=== PATIENT | male | born 1940 | race Caucasian/White ===

== ENCOUNTER 2016-10-03 19:27 | Emergency (ER) | payer MEDICARE, BC ==
[~2016-10-03] VITALS: Ht 175.3 cm; Wt 70.3 kg
[2016-10-03 19:40] VITALS: BP 125/69
== END 2016-10-03 20:29 | disposition home or self-care (01) ==
LOC: ER 19:32
DX: S61.211A Laceration without foreign body of left index finger without damage to nail, initial encounter (principal); E78.00 Pure hypercholesterolemia, unspecified; W26.0XXA Contact with knife, initial encounter; Y93.G1 Activity, food preparation and clean up; Y92.89 Other specified places as the place of occurrence of the external cause; Y99.8 Other external cause status
CPT/HCPCS: 12001; 99283; A4606; Z7610

== ENCOUNTER 2016-10-13 14:55 | Emergency (ER) | payer MEDICARE, BC ==
[~2016-10-13] VITALS: Ht 180.3 cm; Wt 70.3 kg
[2016-10-13 15:04] VITALS: BP 135/72
--- NOTE | 2016-10-13 15:23 | NUR ---
AT BEDSIDE FOR WOUND CARE AND EVAL
== END 2016-10-13 15:33 | disposition home or self-care (01) ==
LOC: ER 15:01
DX: S61.211D Laceration without foreign body of left index finger without damage to nail, subsequent encounter (principal); E78.00 Pure hypercholesterolemia, unspecified
CPT/HCPCS: A4606; Z7610

== ENCOUNTER 2016-10-19 13:35 | Emergency (ER) | payer MEDICARE, BC ==
[~2016-10-19] VITALS: Ht 180.3 cm; Wt 68.0 kg
[2016-10-19 13:52] VITALS: BP 118/60
== END 2016-10-19 14:24 | disposition home or self-care (01) ==
LOC: ER 13:36
DX: S61.211D Laceration without foreign body of left index finger without damage to nail, subsequent encounter (principal); X58.XXXD Exposure to other specified factors, subsequent encounter; M19.90 Unspecified osteoarthritis, unspecified site; E78.00 Pure hypercholesterolemia, unspecified; M79.7 Fibromyalgia
CPT/HCPCS: A4606; Z7502; Z7610

== ENCOUNTER 2019-04-05 15:08 | Emergency (ER) | payer MEDICARE, BC ==
[~2019-04-05] VITALS: Ht 167.6 cm; Wt 66.2 kg
[2019-04-05 15:22] VITALS: BP 125/94
== END 2019-04-05 16:12 | disposition home or self-care (01) ==
LOC: ER 15:09
DX: S81.012A Laceration without foreign body, left knee, initial encounter (principal); M19.90 Unspecified osteoarthritis, unspecified site; M79.7 Fibromyalgia; E78.00 Pure hypercholesterolemia, unspecified; W01.0XXA Fall on same level from slipping, tripping and stumbling without subsequent striking against object, initial encounter; Y93.89 Activity, other specified; Y92.59 Other trade areas as the place of occurrence of the external cause; Y99.8 Other external cause status
CPT/HCPCS: 99282; A6403

== ENCOUNTER 2019-09-09 08:51 | Emergency (ER) | payer MEDICARE, BC ==
[~2019-09-09] VITALS: Ht 172.7 cm; Wt 70.8 kg
--- NOTE | 2019-09-09 09:00 | NUR ---
laceration to scalp s/p hitting head on gym equipment this morning. Patient a/ox4, hard of hearing. Patient has 2x1cm laceration on back of head.
[2019-09-09] MEDS ORDERED: TDAP [DIPH/PERTUSSIS/TET] 0.5 ML VIAL IM ONE ×2 (09:17→09:30)
[2019-09-09] MEDS ORDERED: LIDOCAINE /MPF 1% VIAL 5 ML VIAL ONE (10:13)
[2019-09-09] MEDS ORDERED: LIDOCAINE 1%-EPI 1:100,000 50 ML VIAL IJ ONE (10:30)
[2019-09-09 10:37] VITALS: BP 135/71
--- NOTE | 2019-09-09 10:38 | NUR ---
Patient discharged to home in stable condition. Written and verbal after care instructions given. Patient verbalizes understanding of instruction.
== END 2019-09-09 10:37 | disposition home or self-care (01) ==
LOC: ER 09:01
DX: S01.01XA Laceration without foreign body of scalp, initial encounter (principal); M79.7 Fibromyalgia; M19.90 Unspecified osteoarthritis, unspecified site; E78.00 Pure hypercholesterolemia, unspecified; W22.8XXA Striking against or struck by other objects, initial encounter; Y93.89 Activity, other specified; Y92.39 Other specified sports and athletic area as the place of occurrence of the external cause; Y99.8 Other external cause status
CPT/HCPCS: 12001; 70450; 90471; 90715; 99284; A6403; J3490 ×2

== ENCOUNTER 2019-09-16 09:30 | Emergency (ER) | payer MEDICARE, BC ==
[~2019-09-16] VITALS: Ht 172.7 cm; Wt 79.8 kg
[2019-09-16 09:34] VITALS: BP 109/73
--- NOTE | 2019-09-16 09:49 | NUR ---
Patient discharged to home in stable condition. Written and verbal after care instructions given. Patient verbalizes understanding of instruction.
== END 2019-09-16 09:49 | disposition home or self-care (01) ==
LOC: ER 09:41
DX: S01.01XD Laceration without foreign body of scalp, subsequent encounter (principal); M79.7 Fibromyalgia; M19.90 Unspecified osteoarthritis, unspecified site; E78.00 Pure hypercholesterolemia, unspecified; Z85.828 Personal history of other malignant neoplasm of skin; X58.XXXD Exposure to other specified factors, subsequent encounter

== ENCOUNTER 2022-02-09 12:37 | Emergency (ER) | payer MEDICARE, BC ==
[~2022-02-09] VITALS: Ht 172.7 cm; Wt 68.0 kg
--- NOTE | 2022-02-09 13:00 | NUR ---
[id number] C/O LLE PAIN W/ NOTED SKIN TEAR FROM GLF LAST MONDAY. RATES PAIN 12/24. WILL CONTINUE TO MONITOR THE PATIENT.
[2022-02-09] MEDS ORDERED: CEPH500C2 PO (14:32)
--- NOTE | 2022-02-09 15:02 | NUR ---
[facility] CALLED FOR TRANSPORT ETA 30 MINS PER TERRELL.
--- NOTE | 2022-02-09 15:20 | NUR ---
[facility] AT BEDSIDE AND PROVIDED ENDORSEMENT.
[2022-02-09 15:24] VITALS: BP 130/90
[2022-02-26] MEDS ORDERED: MAGN400O6 PO (10:41)
== END 2022-02-09 15:52 | disposition home or self-care (01) ==
LOC: ER 12:40
DX: S81.802A Unspecified open wound, left lower leg, initial encounter (principal); M79.7 Fibromyalgia; M19.90 Unspecified osteoarthritis, unspecified site; E78.00 Pure hypercholesterolemia, unspecified; W18.39XA Other fall on same level, initial encounter; Y93.89 Activity, other specified; Y92.89 Other specified places as the place of occurrence of the external cause; Y99.8 Other external cause status

== ENCOUNTER 2022-02-22 13:13 | Inpatient (IN) | payer MEDICARE, BC ==
[~2022-02-22] VITALS: Ht 175.3 cm; Wt 68.0 kg
[~2022-02-22 13:13] MED LIST: CEPH500C2 PO
--- NOTE | 2022-02-22 13:13 | NUR ---
BIB RA [facility] FROM HOME S/P HAVING A GLF, NEIGHBOR CALLED [facility] PT -LOC. BLOOD GLUCOSE 130 PER EMS. PT C/O GENERAL WEAKNESS. VITALS ARE WITHIN NORMAL LIMITS. AWAITING MD ORDERS.
[2022-02-22 14:00] LABS: BASOPHILS % (AUTO) 0.2 % (0.0-2.0); HEMATOCRIT 37 % (39-51); HEMOGLOBIN 12.4 g/dL (13.5-17.5); LYMPHOCYTES # (AUTO) 0.5 K/uL (0.8-4.8); LYMPHOCYTES % (AUTO) 7.4 % (20.0-44.0); MEAN CORPUSCULAR HGB CONC 34 g/dl (31.0-36.0); MEAN CORPUSCULAR VOLUME 116 fL (80-96); MONOCYTES # (AUTO) 0.7 K/uL (0.1-1.30); MONOCYTES % (AUTO) 10.8 % (2.0-12.0); NEUTROPHILS # (AUTO) 5.6 K/uL (1.8-8.9); NEUTROPHILS % (AUTO) 81.6 % (43.0-81.0); PLATELET COUNT (AUTO) 93 K/uL (150-450); RED BLOOD CELL COUNT(AUTO) 3.16 MIL/uL (4.5-6.0); WHITE BLOOD COUNT (AUTO) 6.8 K/uL (4.3-11.0)
--- NOTE | 2022-02-22 14:03 | NUR ---
COVID TEST COLLECTED AND SENT
[2022-02-22 14:14] LABS: CARBON DIOXIDE 27 mmol/L (21-32); CHLORIDE 102 mmol/L (98-107); POTASSIUM 4.1 mmol/L (3.5-5.1); SODIUM SERUM 139 mmol/L (136-145)
[2022-02-22] MEDS ORDERED: LORA-259 PO (14:20)
[2022-02-22] MEDS ORDERED: BICT1TAB PO (14:31)
[2022-02-22] MEDS ORDERED: DOXA8TAB79 PO (14:31)
[2022-02-22] MEDS ORDERED: LEVO50TA8 PO (14:31)
[2022-02-22] MEDS ORDERED: LIOT5TAB11 PO (14:31)
--- NOTE | 2022-02-22 14:41 | NUR ---
[facility] (HOME HEALTH FOR THIS PT) [phone]
[2022-02-22 14:51] LABS: ACETAMINOPHEN 0 ug/ml (10-30); ALANINE AMINOTRANSFERASE 26 U/L (12-78); ALBUMIN 3.8 g/dL (3.4-5.0); ALCOHOL, BLOOD < 3 mg/dL (0-0); ALKALINE PHOSPHATASE 84 U/L (46-116); ASPARTATE AMINOTRANSFERASE 85 U/L (15-37); BILIRUBIN,DIRECT 0.4 mg/dL (0.0-0.2); BILIRUBIN,TOTAL 3.3 mg/dL (0.2-1.0); CALCIUM, SERUM 9.3 mg/dL (8.5-10.1); CREATININE 0.9 mg/dL (0.6-1.3); GLUCOSE 129 mg/dL (74-106); UREA NITROGEN, BLOOD 32 mg/dL (7-18)
--- NOTE | 2022-02-22 15:40 | NUR ---
CALLED NURSING SUP REGARDING PT BED
[2022-02-22 15:48] LABS: LYMPHOCYTES % (MANUAL) 11 % (16-48); MONOCYTES % (MANUAL) 9 % (0-11.0); NEUTROPHILS % (MANUAL) 80 (42-76)
[2022-02-22] MEDS ORDERED: LORAZEPAM 1 MG TABLET PO PRN (16:00)
[2022-02-22] MEDS ORDERED: ACETAMINOPHEN 325 MG TABLET PO PRN (16:00)
[2022-02-22] MEDS ORDERED: ONDANSETRON HCL/PF 4 MG/2 ML VIAL IVP PRN (16:00)
[2022-02-22] MEDS ORDERED: ZOLPIDEM TARTRATE 5 MG TABLET PO PRN (16:00)
[2022-02-22] MEDS ORDERED: MAGNESIUM HYDROXIDE 30 ML UDC PO PRN (16:00)
[2022-02-22] MEDS ORDERED: Z GUARD REMEDY 4 OZ OINT TP PRN (16:00)
[2022-02-22] MEDS ORDERED: MAG HYDROX/AL HYDROX/SIMETH 30 ML UDC PO PRN (16:00)
--- NOTE | 2022-02-22 16:19 | NUR ---
[id number]. PRIMARY RN AWARE.
--- NOTE | 2022-02-22 16:55 | NUR ---
RN MS NOTES RECEIVED PT FROM E.R. STAFF VIA [facility], ASSISTED TO BED, MADE COMFORTABLE, PT IS AWAKE, ALERT AND VERBALLY RESPONSIVE, PT IS DEAF, NURSES COMMUNICATE THROUGH GESTURES AND HANDWRITTEN NOTED, PT DENIES PAIN, NOT IN DISTRESS, ROOM SET UP ORIENTATION PROVIDED TO PT, VERBALIZED UNDERSTANDING, VITALS TAKEN AND RECORDED, SKIN ASSESSMENT DONE AND PHOTOS TAKEN, DINNER SERVED, ATE WITH GOOD APPETITE, PM MEDS GIVEN ORDERED, ALL NEEDS ATTENDED.
[2022-02-22 17:00] VITALS: BP 138/76
[2022-02-22] MEDS: IV NS 0.9% 1,000 ML IV PRN (18:11)
--- NOTE | 2022-02-22 19:41 | NUR ---
RN MS NOTES PT IS AWAKE, ALERT AND VERBALLY RESPONSIVE, PT IS DEAF, NURSES COMMUNICATE THROUGH GESTURES AND HANDWRITTEN NOTED, PT DENIES PAIN, NOT IN DISTRESS, ROOM SET UP ORIENTATION PROVIDED TO PT, VERBALIZED UNDERSTANDING. PT IN NO PAIN OR DISTRESS AT THIS TIME WILL CONTINUE TO MONITOR.
[2022-02-22 20:00] VITALS: BP 120/51
[2022-02-23 06:24] LABS: BASOPHILS % (AUTO) 0.4 % (0.0-2.0); EOSINOPHILS % (AUTO) 0.7 % (0.0-6.0); HEMATOCRIT 34 % (39-51); HEMOGLOBIN 11.7 g/dL (13.5-17.5); LYMPHOCYTES # (AUTO) 0.7 K/uL (0.8-4.8); LYMPHOCYTES % (AUTO) 17.3 % (20.0-44.0); MEAN CORPUSCULAR HGB CONC 34 g/dl (31.0-36.0); MEAN CORPUSCULAR VOLUME 117 fL (80-96); MONOCYTES # (AUTO) 0.5 K/uL (0.1-1.30); MONOCYTES % (AUTO) 10.8 % (2.0-12.0); NEUTROPHILS % (AUTO) 70.8 % (43.0-81.0); PLATELET COUNT (AUTO) 78 K/uL (150-450); RED BLOOD CELL COUNT(AUTO) 2.92 MIL/uL (4.5-6.0); WHITE BLOOD COUNT (AUTO) 4.3 K/uL (4.3-11.0)
--- NOTE | 2022-02-23 06:46 | NUR ---
RN MS NOTES PT IS AWAKE, A/O X 4 ABLE TO MAKE NEED KNOW ON ROOM AIR TOLERATING WELL. PT IS DEAF, COMMUNICATES THROUGH GESTURES AND HANDWRITTEN NOTED, PT DENIES PAIN, NOT IN DISTRESS, PT HAS IV ACCESS ON THE LFA RUNNING NS@90ML/HR TOLERATING WELL. ALL NEEDS MET. CALL LIGHT WITHIN REACH. TABLE WITHIN REACH. BILATERAL SIDE RAILS UP FOR SAFETY. PT URINE NEED TO BE COLLECTED FOR CX WILL HAVE DAYSHIFT NURSE TRY TO COLLECT I WAS NOT ABLE TO COLLECT LAST NIGHT. WILL ENDORSE AUSTEN.
[2022-02-23 07:06] LABS: ALBUMIN 2.9 g/dL (3.4-5.0); BILIRUBIN,TOTAL 3.2 mg/dL (0.2-1.0); CALCIUM, SERUM 8.4 mg/dL (8.5-10.1); CREATININE 0.8 mg/dL (0.6-1.3); MAGNESIUM 2.2 mg/dL (1.8-2.4); POTASSIUM 3.6 mmol/L (3.5-5.1); TOTAL PROTEIN, SERUM 5.7 g/dL (6.4-8.2)
--- NOTE | 2022-02-23 07:08 | NUR ---
MS RN OPENING NOTES RECEIVED PATIENT ASLEEP IN BED, A/Ox4, ON ROOM AIR NO S/S OF RESPIRATORY DISTRESS. IV ACCESS L HAND #20G RUNNING NS @90 ML/HR. INTACT AND PATENT, NO S/S OF INFILTRATION. BED REST. CONTINENT USES URINAL. NO S/S OF PAIN OR DISCOMFORT. PATIENT HAS L KNEE, TOES, CALFS, SACRAL, AND L/R LEG ABRASIONS. SAFETY MEASURES IN PLACE: BED LOCKED AND IN LOWEST POSITION, CALL LIGHT WITHIN REACH, SIDE RAILS UPx2. WILL CONTINUE TO MONITOR.
[2022-02-23 08:00] VITALS: BP 134/78
[2022-02-23] MEDS: LEVOTHYROXINE SODIUM 50 MCG TABLET PO SCH (08:30)
[2022-02-23] MEDS: LIOTHYRONINE SODIUM (5 MCG/TA 5 MCG TABLET PO SCH (08:30)
[2022-02-23] MEDS: DOXAZOSIN MESYLATE (4 MG) 4 MG TABLET PO SCH (08:31)
--- NOTE | 2022-02-23 10:17 | NUR ---
WOUND CARE CONSULT: PT PRESENTS WITH SACRAL DEEP TISSUE INJURY IN EVOLUTION AND LEFT KNEE DRY ESCHAR, PRESENT ON ADMISSION. PT ALSO NOTED TO HAVE MULTIPLE AREAS OF SKIN DISCOLORATION. SURGICAL CONSULT CALLED TO DR TONY RUIZ. RECOMMENDATIONS MADE FOR SKIN PROTECTION AND WOUND CARE. DISCUSSED WITH NURSING STAFF. IN AGREEMENT WITH PLAN OF CARE. Addendum: 02/23/22 at 1019 by RAGHAV KRUEGER WNDNU Amended: Links added.
[2022-02-23 11:09] LABS: BILIRUBIN,URINE SMALL (NEGATIVE); COLOR,URINE AMBER (YELLOW); LEUKOCYTE ESTERASE ,URINE NEGATIVE (NEGATIVE); NITRITE, URINE NEGATIVE (NEGATIVE); PROTEIN,URINE TRACE mg/dl (NEGATIVE); UGLUCOSE NEGATIVE (NEGATIVE)
[2022-02-23 11:27] LABS: BACTERIA,URINE None seen /HPF (None Seen); SQUAMOUS EPITHELIAL CELL,UR 0-2 /HPF (None Seen); WBC,URINE 0-2 /HPF (0-3)
[2022-02-23 16:05] VITALS: BP 135/68
--- NOTE | 2022-02-23 18:37 | NUR ---
MS RN CLOSING NOTES PATIENT RESTING IN BED, A/Ox4, STABLE ON ROOM AIR NO S/S OF RESPIRATORY DISTRESS. IV ACCESS L HAND #20G RUNNING NS @90 ML/HR. INTACT AND PATENT, NO S/S OF INFILTRATION. BED REST. CONTINENT USES URINAL. NO S/S OF PAIN OR DISCOMFORT. PATIENT HAS L KNEE, L TOE, CALFS BRUISES, SACRAL WOUND, AND L/R LEG ABRASIONS. SAFETY MEASURES MAINTAINED: BED LOCKED AND IN LOWEST POSITION, CALL LIGHT WITHIN REACH, SIDE RAILS UPx2. WILL ENDORSE TO NEXT SHIFT ANY AUSTEN.
[2022-02-23] MEDS: IV NS 0.9% 1,000 ML IV PRN (19:12)
[2022-02-23 20:00] VITALS: BP 135/77
--- NOTE | 2022-02-23 20:25 | NUR ---
RECEIVED PATIENT IN BED, ALERT AND ORIENTED X4, DEAF, WRITTEN COMMUNICATIONS, ANSWERS VERBALLY, CALM, STABLE ON ROOM AIR, NO COMPLAIN OF PAIN, LEFT HAND IV, NS AT 90 ML/HR, KEPT SAFE, CALL LIGHT WITHIN REACH.
[2022-02-23 20:55] VITALS: BP 135/77
[2022-02-24] MEDS: IV NS 0.9% 1,000 ML IV PRN ×2 (06:18→17:15)
--- NOTE | 2022-02-24 06:47 | NUR ---
REMAINED ALERT AND ORIENTED X3, ROOM AIR, NO DISTRESS, BILATERAL EAR DEAFNESS, USES URINAL TO VOID, NS AT 90 ML/HR, UA NEGATIVE, PELVIC CT NEGATIVE, PT EVAL, TREND CK, WOUND CARE, CONTINUE IVF, MONITOR LABS.
[2022-02-24 07:01] LABS: CREATININE 0.8 mg/dL (0.6-1.3); POTASSIUM 3.4 mmol/L (3.5-5.1)
[2022-02-24 08:00] VITALS: BP 151/91
--- NOTE | 2022-02-24 08:03 | NUR ---
MS RN OPENING NOTE Patient in bed, awake. A/O x 4, deaf but able to communicate through writing. On room air, breathing evenly and unlabored. No SOB or s/s of distress noted. IV access on Left hand #20 infusing NS at 90 ml/hr. Safety precautions in place: bed in low, locked position; siderails up x 2; call light within reach. will continue to monitor.
[2022-02-24] MEDS: LIOTHYRONINE SODIUM (5 MCG/TA 5 MCG TABLET PO SCH (08:47)
[2022-02-24] MEDS: DOXAZOSIN MESYLATE (4 MG) 4 MG TABLET PO SCH (08:47)
[2022-02-24] MEDS: LEVOTHYROXINE SODIUM 50 MCG TABLET PO SCH (08:47)
[2022-02-24] MEDS ORDERED: APIXABAN 2.5 MG TABLET PO SCH (09:00)
[2022-02-24] MEDS ORDERED: POTASSIUM CHLORIDE 20 MEQ TAB.PRT.SR PO SCH (13:00)
--- NOTE | 2022-02-24 13:00 | NUR ---
RN NOTE Spoke with Maximiliano Orr, Patient's nephew, about patient's home medication Biktarvy. Per Maximiliano, they cannot find the medication at home. Spoke with patient who gave instructions as to where the medication might be located, relayed to Maximiliano. Notified pharmacy that family still looking for medication.
--- NOTE | 2022-02-24 19:33 | NUR ---
MS RN CLOSING NOTE Patient in bed, resting. A/O x 4, deaf but able to communicate through writing. Stable on room air, breathing evenly and unlabored. No SOB or s/s of distress noted. IV access on Left hand #20 infusing NS at 90 ml/hr. Due meds given. All needs attended to. Safety precautions in place: bed in low, locked position; siderails up x 2; call light within reach. Will endorse to corrosion control fitter nurse for AUSTEN.
[2022-02-24 20:00] VITALS: BP 107/71
--- NOTE | 2022-02-25 06:26 | NUR ---
MS RN CLOSING NOTE; Patient in bed, resting. A/O x 4, deaf but able to communicate through writing. Stable on room air, breathing evenly and unlabored.no sign sob/distress noted. IV access on Left hand #20 infusing NS at 90 ml/hr. Due meds given as ordered.All needs attended. Safety precautions in place: bed in low, locked position; siderails up x 2; call light within reach. Will endorse to next shift.
[2022-02-25 06:32] LABS: CALCIUM, SERUM 8.3 mg/dL (8.5-10.1); CARBON DIOXIDE 26 mmol/L (21-32); CHLORIDE 104 mmol/L (98-107); CREATININE 0.7 mg/dL (0.6-1.3); GLUCOSE 104 mg/dL (74-106); POTASSIUM 3.7 mmol/L (3.5-5.1); SODIUM SERUM 136 mmol/L (136-145); UREA NITROGEN, BLOOD 13 mg/dL (7-18)
--- NOTE | 2022-02-25 07:59 | NUR ---
MS DENA OPENING NOTE Patient in bed, awake. A/O x 4, deaf but able to communicate through writing. On room air, breathing evenly and unlabored. No SOB or s/s of distress noted. IV access on Left hand #20 infusing NS at 90 ml/hr. Patient denies any pain or discomfort at this time. Safety precautions in place: bed in low, locked position; siderails up x 2; call light within reach. Will continue to monitor. Addendum: 02/25/22 at 1941 by JAEL VEGA RN CORRECTION: Patient is A/O x 2-3, forgetful at times.
[2022-02-25] MEDS: LIOTHYRONINE SODIUM (5 MCG/TA 5 MCG TABLET PO SCH (08:20)
[2022-02-25] MEDS: LEVOTHYROXINE SODIUM 50 MCG TABLET PO SCH (08:20)
[2022-02-25] MEDS: DOXAZOSIN MESYLATE (4 MG) 4 MG TABLET PO SCH (08:21)
[2022-02-25] MEDS: IV NS 0.9% 1,000 ML IV PRN (19:14)
--- NOTE | 2022-02-25 19:39 | NUR ---
MS RN CLOSING NOTE Patient in bed, awake. A/O x 4, deaf but able to communicate through writing. Stable on room air, breathing evenly and unlabored. No SOB or s/s of distress noted. IV access on Left hand #20 infusing NS at 90 ml/hr. All needs attended to. Due meds given. Safety precautions maintained: bed in low, locked position; siderails up x 2; call light within reach. Will endorse to manufacturing shift supervisor nurse for AUSTEN. Addendum: 02/25/22 at 1941 by JAEL VEGA RN CORRECTION: Patient is A/O x 2-3, forgetful at times
--- NOTE | 2022-02-25 19:57 | NUR ---
RECEIVED PATIENT IN BED, ALERT/ORIENTED X2-3, DEAF, WRITTEN COMMUNICATION ONLY, STABLE ON ROOM AIR, NO COMPLAIN OF PAIN, KEPT HOB ELEVATED, FALL PRECAUTION, PRESSURE ULCER PRECAUTION, KEPT SAFE, WILL CONTINUE TO MONITOR.
[2022-02-25 21:53] VITALS: BP 127/91
[2022-02-26 03:49] VITALS: BP 127/91
--- NOTE | 2022-02-26 06:12 | NUR ---
ALERT/ORIENTED X3, FORGETFUL, DEAF, WRITTEN COMMUNICATIONS, ABLE TO ANSWER VERBALLY, NO COMPLAIN OF PAIN, NS AT 90 ML/HR, USES URINAL, AMBULATES WITH PT, DISCHARGE PLANNING IN PROGRESS, CM LOOKING FOR SNF THAT CAN REFILL BIKTARVY.
[2022-02-26] MEDS: IV NS 0.9% 1,000 ML IV PRN ×2 (06:17→17:35)
--- NOTE | 2022-02-26 07:30 | NUR ---
MS RN OPENING NOTES RECEIVED PATIENT IN BED , ALERT/ORIENTED X2-3, WITH HARD OF HEARING , WRITTEN COMMUNICATION ONLY, STABLE ON ROOM AIR WITH NO SOB OR DISTRESS NOTED, LEFT HAND #20 WITH NS @90 ML/HR , NO C/O OF PAIN AND DISCOMFORT , KEPT HOB ELEVATED, BED IN LOWEST POSITION , WILL CONTINUE TO MONITOR.
[2022-02-26 08:00] VITALS: BP 124/71
[2022-02-26] MEDS: LEVOTHYROXINE SODIUM 50 MCG TABLET PO SCH (08:29)
[2022-02-26] MEDS: DOXAZOSIN MESYLATE (4 MG) 4 MG TABLET PO SCH (08:30)
[2022-02-26] MEDS: LIOTHYRONINE SODIUM (5 MCG/TA 5 MCG TABLET PO SCH (08:57)
[2022-02-26] MEDS ORDERED: MAGN400O6 PO (10:41)
[2022-02-26 16:00] VITALS: BP 132/69
--- NOTE | 2022-02-26 18:37 | NUR ---
MS RN CLOSING NOTES PATIENT IN BED , ALERT/ORIENTED X2-3, WITH HARD OF HEARING , WRITTEN COMMUNICATION PROVIDED , STABLE ON ROOM AIR WITH NO SOB OR DISTRESS NOTED, LEFT HAND #20 WITH NS @90 ML/HR , ALL DUE MEDS GIVEN ORDERED , EVALUATED BY PHYSICAL THERAPY AND ABLE TO AMBULATE WITH ASSIST , NO C/O OF PAIN AND DISCOMFORT , KEPT HOB ELEVATED, BED IN LOWEST POSITION , WITH ORDER FOR D/C TO A SNF BUT STILL WAITING FOR HIS MEDICATION BIKTARVY AND PER DELIA ISABEL THEY CANT REFILL SINCE ITS ON THE WEEKEND , CROP GRAIN OR LIVESTOCK FARMER AWARE , ALL NEEDS ATTENDED
--- NOTE | 2022-02-26 19:34 | NUR ---
MS RN OPENING NOTES: RECEIVED PATIENT SLEEP IN BED COMFORTABLY AROUSABLE TO VERBAL STIMULI, BED IN LOW POSITION CALL LIGHTS WITHIN REACH, NO COMPLAIN OF PAIN AN D DISCOMFORT AT THIS TIME ON ROOM AIR SATURATING WELL, WITH IV LINE AT LEFT HAND #20 WITH ONGOING NSS@90ML/HR INFUSING WELL, PATIENT IS A/OX3 ABLE TO MAKE NEEDS KNOWN, HARD OF HEARING PROMPT AND IN WRITING COMMUNICATIONS, PATIENT KEPT CLEAN AND DRY ALL NEEDS MET WILL CONTINUE TO MONITOR.
[2022-02-26 20:00] VITALS: BP 123/79
[2022-02-27] MEDS: IV NS 0.9% 1,000 ML IV PRN ×2 (04:42→16:14)
--- NOTE | 2022-02-27 06:50 | NUR ---
RN CLOSING NOTES: PATIENT SLEEP IN BED COMFORTABLY, BED IN LOW POSITION, CALL LIGHTS WITHIN REACH, NO COMPLAIN OF PAIN AND DISCOMFORT AT THIS TIME, ON O2 INHALATION AT 3LPM SATURATING WELL, PATIENT IS A/OX4 ABLE TO MAKE NEEDS KNOWN, WITH IV LINE AT LAC#18 WITH ONGOING NSS@90ML/HR INFUSING WELL, PATIENT KEPT CLEAN AND DRY ALL NEEDS MET ENDORSE TO INCOMING SHIFT.
--- NOTE | 2022-02-27 07:10 | NUR ---
MS RN OPENING NOTES RECEIVED PATIENT SLEEPING IN BED, A/Ox3-4, ABLE TO MAKE NEEDS KNOWN. IV ACCESS L HAND #20 NS RUNNING 90 ML/HR. INTACT AND PATENT. PATIENT ON ROOM AIR, NO S/S OF RESPIRATORY DISTRESS. PATIENT IS CONTINENT, USES URINAL AND BEDPAN. SKIN ISSUES: SACRAL DTI, MULTIPLE BRUISES AND R KNEE ABRASION. SAFETY MEASURES IN PLACE: BED LOCKED AND IN LOWEST POSITION, CALL LIGHT WITHIN REACH, BED ALARM ON, SIDE RAILS UP x2, HOB ELEVATED. WILL CONTINUE TO MONITOR.
[2022-02-27] MEDS: LIOTHYRONINE SODIUM (5 MCG/TA 5 MCG TABLET PO SCH (08:12)
[2022-02-27] MEDS: DOXAZOSIN MESYLATE (4 MG) 4 MG TABLET PO SCH (08:13)
[2022-02-27] MEDS: LEVOTHYROXINE SODIUM 50 MCG TABLET PO SCH (08:13)
[2022-02-27 08:29] VITALS: BP 134/76
[2022-02-27 16:30] VITALS: BP 127/90
--- NOTE | 2022-02-27 18:36 | NUR ---
MS RN CLOSING NOTES PATIENT SLEEPING IN BED, A/Ox3-4, ABLE TO MAKE NEEDS KNOWN. IV ACCESS L HAND #20 NS RUNNING 90 ML/HR. INTACT AND PATENT. PATIENT ON ROOM AIR, NO S/S OF RESPIRATORY DISTRESS. PATIENT IS CONTINENT, USES URINAL AND BEDPAN. SKIN ISSUES: SACRAL DTI, MULTIPLE BRUISES AND R KNEE ABRASION. ALL PRESCRIBED MEDICATION ADMINISTERED. SAFETY MEASURES MAINTAINED: BED LOCKED AND IN LOWEST POSITION, CALL LIGHT WITHIN REACH, BED ALARM ON, SIDE RAILS UP x2, HOB ELEVATED. WILL ENDORSE TO NEXT SHIFT ANY AUSTEN.
[2022-02-27 20:00] VITALS: BP 146/94
--- NOTE | 2022-02-28 06:57 | NUR ---
RN CLOSING NOTES PATIENT IN BED , ALERT/ORIENTED X2-3, WITH HARD OF HEARING , WRITTEN COMMUNICATION PROVIDED , STABLE ON ROOM AIR WITH NO SOB OR DISTRESS NOTED, LEFT HAND #20 WITH NS @90 ML/HR , ALL DUE MEDS GIVEN ORDERED , EVALUATED BY PHYSICAL THERAPY AND ABLE TO AMBULATE WITH ASSIST , NO C/O OF PAIN AND DISCOMFORT , KEPT HOB ELEVATED, BED IN LOWEST POSITION , WITH ORDER FOR D/C TO A SNF WHEN BIKTARVY MEDICATION IS AVAILABLE PER NEPHEW
--- NOTE | 2022-02-28 07:25 | NUR ---
RN OPENING NOTE- PATIENT AWAKE IN BED, A/Ox3-4, HARD OF HEARING, . IV ACCESS L HAND #20 NS RUNNING 90 ML/HR. . PATIENT ON ROOM AIR, NO S/S OF RESPIRATORY DISTRESS. PATIENT IS CONTINENT, USES URINAL AND BEDPAN. SKIN ISSUES: SACRAL DTI, MULTIPLE BRUISES AND R KNEE ABRASION. SAFETY MEASURES IN PLACE: BED LOCKED AND IN LOWEST POSITION, CALL LIGHT WITHIN REACH, BED ALARM ON, SIDE RAILS UP x2, HOB ELEVATED. WILL CONTINUE TO MONITOR / ASSIST
[2022-02-28] MEDS: LIOTHYRONINE SODIUM (5 MCG/TA 5 MCG TABLET PO SCH (07:57)
[2022-02-28] MEDS: LEVOTHYROXINE SODIUM 50 MCG TABLET PO SCH (07:57)
[2022-02-28 08:00] VITALS: BP 135/92
[2022-02-28] MEDS: DOXAZOSIN MESYLATE (4 MG) 4 MG TABLET PO SCH (09:05)
[2022-02-28 16:00] VITALS: BP 143/100
[2022-02-28] MEDS: IV NS 0.9% 1,000 ML IV PRN (17:10)
--- NOTE | 2022-02-28 18:55 | NUR ---
RN CLOSING NOTE-DC AT 1900. PATIENT AWAKE IN BED, A/Ox3-4, HARD OF HEARING, . IV ACCESS L HAND #20 NS RUNNING 90 ML/HR. . PATIENT ON ROOM AIR, NO S/S OF RESPIRATORY DISTRESS. PATIENT IS CONTINENT, USES URINAL AND BEDPAN. SKIN ISSUES: SACRAL DTI, MULTIPLE BRUISES AND R KNEE ABRASION. SAFETY MEASURES IN PLACE: BED LOCKED AND IN LOWEST POSITION, CALL LIGHT WITHIN REACH, BED ALARM ON, SIDE RAILS UP x2, HOB ELEVATED. WILL CONTINUE TO MONITOR / ASSIST
--- NOTE | 2022-02-28 19:51 | NUR ---
WET MACHINE OPERATOR NOTES: RECEIVED PATIENT IN BED AWAKE ABOUT TO BE DISCHARGE, [facility] WAS ON THE FLOOR FOR PICK, PATIENT IS A/OX4 ABLE TO MAKE NEEDS KNOWN, NO IV LINE REMOVED, PATIENT ON O2 INHALATION NO SOB WAS OBSERVED, V/S ARE WITHIN NORMAL RANGE, KEPT CLEAN AND DRY ALL NEEDS MET ALL INFORMATION REGARDING PATIENT WAS ENDORSE BY [facility] TO SNF , LEFT AT 1920 VIA [employer]
--- NOTE | 2022-02-28 21:23 | NUR ---
RN NOTES: CHARGE NURSE RECEIVED A CALL FROM [facility] AT [facility], TO NOTIFY US THAT PATIENT WAS COVID POSITIVE AND AND THAT PATIENT WILL BE REUTRNED BACK TO HOSPITAL FOR FURTHER MANAGEMENT.
[2022-02-28 22:00] VITALS: BP 150/90
--- NOTE | 2022-02-28 23:19 | NUR ---
RN NOTE 2135 PT SENT BACK [facility]IA [facility] WITH 2 TRAFFIC CONTROLLER CABLE BY [facility] DUE TO TESTING COVID POSITIVE. PT AOX3. DENIES ANY PAIN OR SOB. 97% ON ROOM AIR. AFEBRILE. COUGHING. ALL SAFETY MEASURES IN PLACE. ISOLATION PRECAUTION OBSERVED. NOTIFIED DR DONATO. WILL CONTINUE TO MONITOR.
[2022-03-01 04:00] VITALS: BP 138/80
[2022-03-01] MEDS: IV NS 0.9% 1,000 ML IV PRN (04:05)
--- NOTE | 2022-03-01 07:05 | NUR ---
MS RN OPENING NOTE: RECEIVED PT. IN BED, A/Ox3-4, DEAF, ABLE TO COMMUNICATE THROUGH HAND GESTURES AND PEN AND PAPER. NO COMPLAINTS OF PAIN AT THIS TIME. PATIENT ON ROOM AIR, NO S/S OF RESPIRATORY DISTRESS. IV ACCESS ON R FA #20 NS RUNNING @ 90 ML/HR. IV DRESSING C/D/I WITH NO S/S OF INFILTRATION. PATIENT IS CONTINENT, USES URINAL AND BEDPAN. SKIN ISSUES: SACRAL DTI, MULTIPLE BRUISES AND L & R KNEE ABRASION. SAFETY MEASURES IN PLACE: BED LOCKED AND IN LOWEST POSITION, CALL LIGHT WITHIN REACH, BED ALARM ON, SIDE RAILS UP x2, HOB ELEVATED. WILL CONTINUE TO MONITOR PT. FOR ANY CHANGES.
--- NOTE | 2022-03-01 07:19 | NUR ---
RN NOTE PT AWAKE. TOLERATES ROOM AIR. NOT IN ANY DISTRESS. PT ABLE TO MAKE NEEDS KNOWN. PER DR DONATO TO CONTINUE ALL ORDERS/MED. INSERTED IV LINE ON RFA 20G, GOOD BLOOD RETURN, NS RESTARTED AT 90ML/HR, INFUSING WELL. REMAIN AFEBRILE. ENDORSED TO NEXT SHIFT NURSE FOR AUSTEN.
[2022-03-01 08:00] VITALS: BP 151/86
[2022-03-01] MEDS: DOXAZOSIN MESYLATE (4 MG) 4 MG TABLET PO SCH (08:02)
[2022-03-01] MEDS: LEVOTHYROXINE SODIUM 50 MCG TABLET PO SCH (08:02)
[2022-03-01] MEDS: LIOTHYRONINE SODIUM (5 MCG/TA 5 MCG TABLET PO SCH (10:07)
[2022-03-01] MEDS ORDERED: BIKTARVY PO SCH (13:00)
[2022-03-01 16:00] VITALS: BP 108/76
--- NOTE | 2022-03-01 18:45 | NUR ---
MS PROJECT MANAGER/DESIGN MANAGER NOTE: PT. DC'ED TO [facility]IA [facility]UL[facility]. REPORT GIVEN TO DENA SHELDON OVER THE PHONE. PT. REMAINS A/Ox3-4, DEAF, ABLE TO COMMUNICATE THROUGH HAND GESTURES AND PEN AND PAPER. NO COMPLAINTS OF PAIN AT THIS TIME. PATIENT ON ROOM AIR, NO S/S OF RESPIRATORY DISTRESS. IV ACCESS ON R FA #20 REMOVED, PRESSURE DRESSING APPLIED, NO S/S OF BLEEDING NOTED ON SITE. PT. ABLE TO WALK WITH 1 PERSON ASSIST USING FWW IN THE ROOM. PT. SIGNED WRITTEN DC INSTRUCTIONS AND PT. BELONGING LIST. EXPLAINED DC PLAN AND PT. VERBALIZED UNDERSTANDING. NEW/CONTINUED MEDICATION LIST PROVIDED AND EXPLAINED TO PT. AND SNF RN. PT. LEFT THE UNIT STILL RAPID COVID + WITH 3 ARMHOLE PRESSER VIA [facility] AT 1840.
== END 2022-03-01 19:10 | DRG 557 ==
LOC: ER 13:15 → MED 16:27 → TELE 20:32 → MED 02-23 10:18 → MEDSG1 02-28 21:24
PROVIDERS: ADMIT Nurse Practitioner Acute Care; ATTEND Nurse Practitioner Acute Care
DX: M62.82 Rhabdomyolysis (principal); U07.1 COVID-19; M79.7 Fibromyalgia; Z85.828 Personal history of other malignant neoplasm of skin; M19.90 Unspecified osteoarthritis, unspecified site; E78.00 Pure hypercholesterolemia, unspecified; Z79.899 Other long term (current) drug therapy; N40.0 Benign prostatic hyperplasia without lower urinary tract symptoms; E80.6 Other disorders of bilirubin metabolism; H91.90 Unspecified hearing loss, unspecified ear; Z98.890 Other specified postprocedural states; E03.9 Hypothyroidism, unspecified; Z79.3 Long term (current) use of hormonal contraceptives; L89.156 Pressure-induced deep tissue damage of sacral region; D64.9 Anemia, unspecified; W18.30XA Fall on same level, unspecified, initial encounter; Y92.9 Unspecified place or not applicable; S81.812A Laceration without foreign body, left lower leg, initial encounter
CPT/HCPCS: 36415; 71045-TC; 72170-TC; 80048-TC; 80053-TC; 80076-TC; 81001; 82550-TC; 82553; 83605-TC; 83735-TC; 84100-TC; 85025-TC; 87040-TC; 87081-TC; 87086-TC; 97112-TC; 97116-TC; 97530-TC; C9803; G0378; G0480; J7030; U0003